=== PATIENT | male | born 1955 | race Caucasian/White ===

== ENCOUNTER 2023-05-27 13:17 | Emergency (ER) | payer MEDICARE, SELFPAY ==
[2023-05-27 13:26] VITALS: BP 148/59; PULSE 87; RESP 20; TEMP 37.2; O2SAT 94
--- NOTE | 2023-05-27 13:45 | ED.ANIMALBIT ---
HPI - Animal Bite General Chief Complaint: Animal Bite Stated Complaint: Cat bite on right finger Time Seen by Provider: 05/27/23 13:35 Source: patient, RN notes reviewed and old records reviewed Mode of arrival: ambulatory Limitations: no limitations History of Present Illness HPI narrative: 68 year old male who presents to [facility] care with complaints of receiving bites from cat to his left index finger which occurred on Friday with increased pain and swelling to his left index finger today. Patient reports that he has been putting Neosporin ointment to bites on his left index finger with pain a 9/10 today with swelling and tightness to his left index finger noted. Patient reports that it was an infant cat and he was trying to wipe some junk from cats eyes when cat bit him. He has bite to left index at PIP with swelling noted and some bloody drainage and 2 bites to inner aspect of his index finger with one area noted to have blister type of formation, Patient denies any fevers, he is known diabetic. MD complaint: animal bite (cat) Onset (ago): day(s) (2) Animal: cat Severity scale (1-10): 9 Treatments prior to arrival: antibiotic ointment Related Data Patient tetanus UTD: No Home Medications Medication Instructions Recorded Confirmed aspirin 81 mg chewable tablet 81 mg PO DAILY 05/27/23 05/27/23 gabapentin 300 mg capsule 300 mg PO TID 05/27/23 05/27/23 insulin lispro 100 unit/mL 12 unit subcut TID 05/27/23 05/27/23 subcutaneous pen (Humalog KwikPen (U-100) Insulin) lidocaine 5 % topical patch 2 patch topical DAILY 05/27/23 05/27/23 linagliptin 5 mg tablet (Tradjenta) 5 mg PO DAILY 05/27/23 05/27/23 metformin 500 mg tablet 1,000 mg PO BID 05/27/23 05/27/23 rosuvastatin 10 mg tablet 10 mg PO DAILY 05/27/23 05/27/23 tamsulosin 0.4 mg capsule 0.4 mg PO DAILY 05/27/23 05/27/23 Allergies Allergy/AdvReac Type Severity Reaction Status Date / Time No Known Allergies Allergy Unknown Verified 05/27/23 15:02 Review of Systems Review of Systems: CONSTITUTIONAL: Denies fever, chills, or sweats. EYES: Denies visual changes, redness, or discharge. ENT: Denies rhinorrhea, congestion, sore throat, or otalgia. CARDIOVASCULAR: Denies chest pain, palpitations, or edema. RESPIRATORY: Denies cough or dyspnea. GASTROINTESTINAL: Denies abdominal pain, nausea, vomiting, or diarrhea. GENITOURINARY: Denies dysuria or hematuria. SKIN: Denies rash or itching. 3 cat bites to left index finger one at PIP with some blood drainage, 2 on side of finger with one area with a blister type of formation, pain and swelling noted. MUSCULOSKELETAL: Denies back pain, positive for left index finger pain, or myalgia. NEUROLOGIC: Denies headache, numbness, or weakness. PSYCHIATRIC: Denies anxiety or depression. All systems reviewed & are unremarkable except as noted in HPI and below PMFSH Past Medical History Medical History (Updated 05/28/23 @ 09:27 by Ana Laura Heller NP) BPH (benign prostatic hyperplasia) Diabetes Elevated cholesterol Hypertension Kidney stones Surgical History Surgical History H/O lithotripsy H/O right knee surgery Family History Family History Father Family history of blood dyscrasia Mother Cerebrovascular accident Family history of diabetes mellitus in first degree relative Sibling Family history of diabetes mellitus in first degree relative Social History Social History (Updated 05/28/23 @ 09:23 by Ana Laura Heller NP) Smoking status: Never smoker Alcohol intake: current Alcohol use details: social Substance use type: does not use Living arrangements: with family Gender identity (if verbalized by the patient): Male Comments At time of signature, agree with nursing past medical, surgical, social and family history. There is no relevant family history pertinent to the presenting complaint
[2023-05-27] MEDS: TETANUS,DIPHTHERIA,AC PERTUSSIS ADULT (0.5 ML) BOOSTRIX IM (14:18)
== END 2023-05-27 14:38 | disposition home or self-care (01) ==
PROVIDERS: Emergency Provider Registered Nurse; PCP Internal Medicine Infectious Disease
DX: S61.231A Puncture wound without foreign body of left index finger without damage to nail, initial encounter (principal); W55.01XA Bitten by cat, initial encounter; Z23 Encounter for immunization; N40.0 Benign prostatic hyperplasia without lower urinary tract symptoms; E11.9 Type 2 diabetes mellitus without complications; E78.00 Pure hypercholesterolemia, unspecified; I10 Essential (primary) hypertension; Z79.82 Long term (current) use of aspirin
CPT/HCPCS: 90471; 90715; 99203; G0463